=== PATIENT | female | born 1970 | race Caucasian/White ===

== ENCOUNTER 2016-05-17 12:46 | Emergency (ER) | payer MEDICAID, OTHER ==
[~2016-05-17] VITALS: Ht 160 cm; Wt 70.0 kg
[~2016-05-17 12:46] MED LIST: AZIT250T94 PO; BENZ1LOZ52 MM; CETI10CA PO; CODE118S PO; D-ME473S2 PO; FLUT9.9S NASAL; IBUP-1542 PO
[2016-05-17 12:47] VITALS: Ht 160 cm; Wt 70.0 kg
--- NOTE | 2016-05-17 14:22 | RADRPT ---
PROCEDURE: Chest x-ray CLINICAL INDICATION: Cough TECHNIQUE: Chest single view COMPARISON: 04/29/2015 FINDINGS: The heart is normal in size. The pulmonary vessels are normal in caliber. The lungs are clear. Th e costophrenic angles are sharp. The visualized bony thorax is unremarkable. IMPRESSION: No acute cardiopulmonary disease. RPTAT: HH .Chencho Gee MD, Date Time Electronically viewed and signed by .Chencho Gee MD, on 05/17/2016 14:21 .W/
--- NOTE | 2016-05-17 15:41 | RADRPT ---
PROCEDURE: Left breast ultrasound. CLINICAL INDICATION: History of breast cancer. Left breast pain. TECHNIQUE: High-resolution sonography of the left breast was performed in the axial and sagittal p lanes. COMPARISON: No prior study is available for comparison. FINDINGS: There is no cystic or solid mass. Normal breast parenchyma is present. IMPRESSION: 1. Normal left breast ultrasound. 2. Any further management regarding any breast symptoms should be based upon clinical grounds. RPTAT: QQ .Topher Ochoa MD, MD Date Time Electronically viewed and signed by .Topher Ochoa MD, MD on 05/17/2016 15:40 .R/
[2016-05-17] MEDS ORDERED: BENZ100C70 PO (16:06)
[2016-05-17] MEDS ORDERED: ACET500C5 PO (16:06)
[2016-05-17] MEDS ORDERED: AZIT250T94 PO (16:06)
[2016-05-17 16:22] VITALS: TEMP 98.6
--- NOTE | 2016-05-17 16:35 | ERD ---
ER Documentation Chief Complaint Date/Time DATE: 05/17/16 TIME: 16:32 Chief Complaint cough and breast pain when coughing x 1 week HPI 46-year-old female with a past medical history of breast cancer presents to the ED complaining of sore throat, cough that started 1 week ago. Reports that she has not tried taking any medications. States that she also has left breast pain separate from her cough. States that she has had a previous lumpectomy. Denies any abdominal pain, nausea, vomiting, diarrhea, wheezing, shortness of breath, pleuritic chest pain, dyspnea on exertion. ROS All systems reviewed and are negative except as per history of present illness. Medications Home Meds Active Scripts Azithromycin* (Zithromax*) 250 Mg Tablet, 250 MG PO .AzraPACK DIRECTED, #6 TAB TAKE 500 MG (2 TABS) THE FIRST DAY THEN 250 MG (1 TAB) DAYS 2-5 Prov:MARIAELENA LEON PA-C 05/17/16 Benzonatate* (Tessalon Perle*) 100 Mg Capsule, 100 MG PO Q8H Y for COUGH, #20 CAP Prov:MARIAELENA LEON PA-C 05/17/16 Acetaminophen* (Tylophen*) 500 Mg Capsule, 1 CAP PO Q6H Y for PAIN AND OR ELEVATED TEMP, #20 CAP Prov:MARIAELENA LEON PA-C 05/17/16 Cetirizine Hcl* (Zyrtec*) 10 Mg Capsule, 10 MG PO DAILY, #30 TAB.CHEW Prov:ROMA HOWARD PA-C 11/01/15 Fluticasone Propionate (Flonase Allergy Relief) 9.9 Ml [place].susp, 1 SPRAY NASAL BID, #1 BOTTLE TO EACH NOSTRIL Prov:ROMA HOWARD PA-C 11/01/15 Ibuprofen* (Motrin*) 600 Mg Tab, 600 MG PO Q6, #30 TAB Prov:ISABELL VELÁZQUEZ 09/08/15 Benzocaine/Menthol* (Cepacol* Sore Throat Lozenges) 1 Each Lozenge, 1 EACH MM q2h Y for SORE THROAT for 10 Days, LOZENGE Prov:KELLY HERNANDEZ NP 04/29/15 Promethazine w/Codeine (Phenergan w/Codeine Syrup) 5 Ml Syrup, 5 ML PO Q6 Y for COUGH for 10 Days, ML Prov:KELLY HERNANDEZ I. INCOME AUDITOR 04/29/15 Azithromycin* (Zithromax*) 250 Mg Tablet, 250 MG PO .ZPACK DIRECTED, #6 TAB TAKE 500 MG (2 TABS) THE FIRST DAY THEN 250 MG (1 TAB) DAYS 2-5 Prov:KELLY HERNANDEZ I. INCOME AUDITOR 04/29/15 Dextromethorphan Hb-Promethazine Hcl* (Promethazine DM* Syrup) 473 Ml Syrup, 5 ML PO Q6 Y for COUGH for 7 Days, ML Prov:SALINA MONTANEZ MD 03/30/15 Azithromycin* (Zithromax*) 250 Mg Tablet, 250 MG PO .ZPACK DIRECTED, #6 TAB TAKE 500 MG (2 TABS) THE FIRST DAY THEN 250 MG (1 TAB) DAYS 2-5 Prov:SALINA MONTANEZ MD 03/30/15 Allergies Allergies: Coded Allergies: No Known Allergies (Verified Allergy, Unknown, 05/17/16) PMhx/Soc History of Surgery: Yes (4 CSECTIONS, CHOLECYSTECTOMY, EXCISION LEFT BREAST MASS X4) Anesthesia Reaction: No Hx Neurological Disorder: No Hx Respiratory Disorders: No Hx Cardiac Disorders: No Hx Psychiatric Problems: No Hx Miscellaneous Medical Probl: No Hx Alcohol Use: No Hx Substance Use: No Hx Tobacco Use: No Smoking Status: Never smoker Physical Exam Vitals Vital Signs Date Time Temp Pulse Resp B/P Pulse Ox O2 Delivery O2 Flow Rate FiO2 05/17/16 16:22 98.6 05/17/16 12:47 98.5 77 20 140/68 98 Physical Exam Const: [id number], well-nourished. In no acute distress. Head: Atraumatic, normocephalic Eyes: Normal Conjunctiva without injection. No purulent discharge. PERRL. EOMI ENT: Normal external ear. Ear canal without erythema. Tympanic membrane pearly nunes without effusion or bulging. Nasal canal clear with normal turbinates. Moist oropharynx without tonsillar exudates. Non-erythematous pharynx. Uvula midline. No drooling. No trismus. Neck: Full range of motion. No meningismus. No cervical lymphadenopathy. Resp: Clear to auscultation bilaterally. No wheezing, rhonchi, rales, or crackles. No accessory muscle use. No retractions. Cardio: Regular rate and rhythm. No murmurs, rubs or gallops. Breast: Tenderness to palpation of the left breast. No areolar discharge, warmth to touch. No fluctuance or induration. Abd: Soft, non tender, non distended. Normal bowel sounds. No palpable masses. No rebound tenderness. No guarding. Skin: No petechiae or rashes Back: No midline tenderness. No CVA tenderness. Ext: No cyanosis, or edema. Neur: Awake and alert. Psych: Normal Mood and Affect Procedures/MDM This is a 46-year-old female with a past medical history of breast cancer presents to the ED complaining of left breast pain that started 1 week ago as well as a dry cough that started 1 week ago. Patient is afebrile and nontoxic- appearing. A chest x-ray, breast ultrasound was ordered to further evaluate patient. PROCEDURE: Left breast ultrasound. CLINICAL INDICATION: History of breast cancer. Left breast pain. TECHNIQUE: High-resolution sonography of the left breast was performed in the axial and sagittal planes. COMPARISON: No prior study is available for comparison. FINDINGS: There is no cystic or solid mass. Normal breast parenchyma is present. IMPRESSION: 1. Normal left breast ultrasound. 2. Any further management regarding any breast symptoms should be based upon clinical grounds. PROCEDURE: Chest x-ray CLINICAL INDICATION: Cough TECHNIQUE: Chest single view COMPARISON: 04/29/2015 FINDINGS: The heart is normal in size. The pulmonary vessels are normal in caliber. The lungs are clear. The costophrenic angles are sharp. The visualized bony thorax is unremarkable. IMPRESSION: No acute cardiopulmonary disease. Differential diagnosis considered include but is not limited to mastitis, fibroadenoma, cyst, fibrocystic changes, galactocele, fat necrosis, malignancy. Low suspicion for sepsis, cellulitis, or other emergent conditions. This patient presents to the ED with symptoms consistent with a viral acute upper respiratory infection. Patient is afebrile and has normal vital signs. Patient 's physical exam include lungs which were clear to auscultation and a normal pulse oximetry. There is a low suspicion for pneumonia, pneumothorax, pulmonary embolism, epiglottitis, otitis media, otitis externa, viral/strep pharyngitis, sinusitis, peritonsillar abscess, mastoiditis, retropharyngeal abscess, meningitis, sepsis, acute abdomen or other emergent conditions. Discharge medications: Tessalon Perles, Zithromax, Tylenol Patient was instructed to return to the ED for any new or worsening symptoms. They should otherwise follow up with the primary care provider within 1-2 days for a referral for mammogram. The patient's questions were answered at the time of discharge. Patient understood and agreed with discharge management. Departure Diagnosis: Primary Impression: Cough Additional Impression: Breast pain, left Condition: Stable Patient Instructions: Breast Self-Exam (BSE), Mammography, Bronchitis, Antiobiotic Treatment (Adult) Referrals: [facility] Usted se dunn hecho un examen mdico de control que le indica que no est en benjamin condicin que requiera tratamiento urgente en el Departamento de Emergencia. Un estudio ms profundo y el tratamiento de fields condicin pueden esperar sin ningn riesgo hasta que usted sea atendida/o en el consultorio de fields mdico o benjamin cl jayleen. Es responsabilidad suya arreglar benjamin promise para el seguimiento del lauri. MANEJO DE CONDICIONES NO URGENTES EN EL FUTURO 1) Si usted tiene un mdico de atencin primaria: Usted debera llamar a fields mdico de atencin primaria antes de venir al departamento de emergencia. Despus de las horas de consultorio, fields doctor o fields asociado/a est disponible por telfono. El mdico o enfermero de jovani en el servicio telefnico puede asesorarle por abdias medio para atender el problema, o lauri contrario se puede programar benjamin promise. 2) Si usted no tiene un mdico de atencin primaria: Llame al mdico o clnica de referencia que aparece abajo raad las horas de consultorio para hacer benjamin promise para que le vean. CLINICAS: [facility] [phone] [id number] [facility] [phone] [facility] [phone] [place] [id number] [phone] [facility] [phone] [facility]. [phone] [facility] () Usted se dunn hecho un examen mdico de control que le indica que no est en benjamin condicin que requiera tratamiento urgente en el Departamento de Emergencia. Un estudio ms profundo y el tratamiento de fields condicin pueden esperar sin ningn riesgo hasta que usted sea atendida/o en el consultorio de fields mdico o benjamin cl jayleen. Es responsabilidad suya arreglar benjamin promise para el seguimiento del lauri. MANEJO DE CONDICIONES NO URGENTES EN EL FUTURO 1) Si usted tiene un mdico de atencin primaria: Usted debera llamar a fields mdico de atencin primaria antes de venir al departamento de emergencia. Despus de las horas de consultorio, fields doctor o fields asociado/a est disponible por telfono. El mdico o enfermero de jovani en el servicio telefnico puede asesorarle por abdias medio para atender el problema, o lauri contrario se puede programar benjamin promise. 2) Si usted no tiene un mdico de atencin primaria: Llame al mdico o condado institucions de referencia que aparece abajo raad las horas de consultorio para hacer benjamin promise para que le vean. SI USTED NO PUEDE PAGAR PARA AMY UN MEDICO puede ir a: [facility] [address] [place] [address] [facility] [address] [place] [address] [facility] [address] [place] [address] [facility] [address] [place], [place] [id number] Additional Instructions: Llame al doctor MAANA y kenton benjamin PROMISE PARA DENTRO DE 1-2 SANZ.Dgale a la secretaria que nosotros le instruimos hacer esta promise.Avise o llame si fields condicin se empeora antes de la promise. Regresa aqui si peor o no mejor. MARIAELENA LEON PA-C May 17, 2016 16:35
== END 2016-05-17 16:22 | disposition home or self-care (01) ==
LOC: FTE 12:46
DX: R05 Cough (principal); N64.4 Mastodynia; Z85.3 Personal history of malignant neoplasm of breast
CPT/HCPCS: 71010; 76642; Z7502

== ENCOUNTER 2017-03-01 11:49 | Emergency (ER) | END 2017-03-01 15:29 | disposition home or self-care (01) ==